=== PATIENT | male | born 1990 | race Hispanic/Latino ===

== ENCOUNTER 2022-07-17 14:06 | Emergency (ER) | payer OTHER ==
--- OUTSIDE RECORDS SUMMARY | 2022-07-17 14:11 | XMS REPORT | Continuity of Care Document ---
:1990 Author Organization [facility] t Address [address] [place] [address] Care Team Providers Name Role Phone Migue Wong Admitting Clinician Unavailable Payers Payer Name Policy Type Policy Number Effective Date Expiration Date S ource Problems This patient has no known problems. Allergies, Adverse Reactions, Alerts Allergy Allergy Status Severity Reaction(s) Onset Inactive Treating Comm ents Source Name Type Date Date Clinician No Known DA Active U 2020-0 [facility] [place] [facility] No Known DA Active U 2020-0 [facility] 418 [place] [facility] No Known DA Active U 2020-0 [facility]- [place] [facility] No Known DA Active U 2020-0 [facility] 6[facility]22 [place] [facility] Medications This patient has no known medications. Procedures This patient has no known procedures. Encounters Start End Encounter Admission Attending Care Care Encounter Source Date/Time Date/Time Type Type Clinicians Facility Department ID 2021-02-20 Inpatient [facility] HC[facility] [id number] [facility] 14:12:19 [facility] [place] [facility] 2020-04-26 Inpatient [facility] ER [id number] [facility] 22:41:00 52 [facility] Results Test Description Test Time Test Comments Results Result Comments Source TROPONIN-I 2021-02-20 16:37:00 Test Item Value Reference Range Interpretation Comme nts TROPONIN-I 14 See_Comment N HIGH SENSITIVI TY TROPONIN (test code pg/ml MEASUREMENT/RANGES As say = TROPI) : Units : Macy l : Risk Stratification : High : : (Detectable : Limit(Suggestive of : AboveTNIH : : Limit) : sequential testing) : 99 : : : : % ile FEMALES: pg/ml : <= 3.0 : 3.1 - 54 : >54 MALES : pg/ml : <= 3. 0 : 3.1 - 78 : >78 [Automated message] The system [employer] generated this result transmitted reference range: <=3.0. The reference range was not used to interpret this result as normal/abnormal. - CT ABD PELVIS [id number] 16:04:00 [facility] 1990 Sex: M Name:KIESHA OSMAN [facility] FS[facility] : 1990 Age/S: 30 / M [address] Unit #: [id number] Loc: [place] [address] Phys: Avtar Hook MD Acct: [id number] Dis Date: Status: REG ER PHONE #: [phone] Exam Date: 02/20/2021 1544 FAX #: [phone] Reason: ABD PAIN EXAMS: CPT CODE: [id number] CT ABD PELVIS W/CONT [id number] EXAM: CT ABDOMEN AND PELVIS WITH CONTRAST. INDICATION: Abdominal pain COMPARISON: None available TECHNIQUE: Axial CT imaging of the abdomen and pelvis was obtained after the administration of intravenous contrast. Coronal and sagittal reformatted images were submitted for review. IV contrast: 90 mL of Isovue-370 DLP: 821.51 mGy-cm FINDINGS: The heart size is normal. The lung bases are clear. No pericardial or pleural effusion is identified. The liver, spleen, gallbladder, pancreas, and adrenal glands is unremarkable. No focal liver lesions are identified. No intrahepatic biliary duct dilatation. The main portal vein is patent and normal in size. The kidneys are normal in size and appearance. No hydronephrosis or nephrolithiasis is identified. The urinary bladder is normal. The stomach, small bowel, large bowel, and appendix are normal in appearance. No bowel obstruction is identified. No lymphadenopathy is identified in the abdomen or pelvis. No free fluid or free air. The IVC is normal. The abdominal aorta is normal in course and caliber. There is grade 1 anterolisthesis of L5 over S1 with bilateral pars defects. IMPRESSION: No acute abnormality in the abdomen or pelvis. Grade 1 anterolisthesis of L5 over S1 with bilateral pars defects. LOCATION: B2 This CTexam was performed according to our departmental dose optimization program, which includes automatedexposure control, adjustment of the mA and or kV according to patient size and/or use of iterative reconstruction technique. PAGE 1 Signed Report (CONTINUED) Name: KIESHA OSMAN [facility] FSED : 1990 Age/S: 30 / M [address] Unit #: [id number] Loc: [place] [address] Phys: Avtar Hook MD Acct: [id number] Dis Date: Status: REG ER PHONE #: [phone] Exam Date: 02/20/2021 1544 FAX #: [phone] Reason: ABD PAIN EXAMS: CPT CODE: [id number] CT ABD PELVIS W/CONT 25801 <Continued> at 1604 Reported and signed by: Harmony Whiteside M.D. CC: Migue Wong MD Technologist:Denzel Peres CT (R) CTDI:14.62 DLP: 821.51 Trnscb Date/Time: 02/20/2021 (1604) [email or web address] Orig Print D/T: S: 02/20/2021 (5385) PAGE 2 Signed ReportDRUGS OF ABUSE [id number] 15:40:00 Test Item Value Reference Range Interpretation Comments UR COCAINE (test code NEGATIVE ng/ml NEGATIVE = COCAU) UR CANNABINOIDS (test NEGATIVE ng/ml NEGATIVE code = CANU) UR AMPHETAMINE (test NEGATIVE ng/dl NEGATIVE code = AMPHU) UR BARBITURATE (test NEGATIVE ng/ml NEGATIVE code = BARBU) UR BENZODIAZEPINE NEGATIVE ng/ml NEGATIVE (test code = BENZU) UR OPIATES QUAL (test POSITIVE ng/ml NEGATIVE A VALU E EXCEEDS code = OPIAQLU) CRITICAL LEV EL. CRITICAL VALUE CALLEDTO AND CRITICAL VALUE READ BACK BY DR Josesito Pierre 1540 02/20/21. Estephania Wall POSITIVE URINE DRUG SCREEN ANDRES T RESULTS ARE UNCONFIRMED.REF ERR ED CONFIRMATORY TESTING AVAILAB LE UPON PHYSICIANREQUES T. UR PHENCYCLIDINE NEGATIVE ng/ml NEGATIVE THE URINE SPECIMEN (PCP) (test code = WAS TESTE D AT THE [facility]) LISTED CUTOFFS DRUG CLASS INIT IAL TEST LEVEL AMPHETAMINES 1 000 NG/MLBARBITURAT ES 200 NG/MLBENZODIAZE PIN ES 200 NG/MLCOCAINE METABOLITE 300 NG/MLMARIJUANA METABOLITE 50 NG/MLOPIATES 30 0 NG/MLPHENCYCLID INE 25 NG/ML UA RFLX MICROSCOPIC [id number] 15:29:00 Test Item Value Reference Range Interpretation Comments UA COLOR (test code = COLU) YELLOW YELLOW UA APPEARANCE (test code = CLEAR CLEAR APPU) UA GLUCOSE DIPSTICK (test code NORMAL mg/dl NORMAL = DGLUU) UA BILIRUBIN DIPSTICK (test NEGATIVE mg/dl NEGATIVE code = BILU) UA KETONE DIPSTICK (test code NEGATIVE mg/dl NEGATIVE = KETU) UA SPECIFIC GRAVITY (test code 1.010 1.001-1.035 N = SGU) UA BLOOD DIPSTICK (test code = NEGATIVE /UL NEGATIVE ANGELITO) UA PH DIPSTICK (test code = 6.5 4.6-8.0 LETICIA) UA PROTEIN DIPSTICK (test code NEGATIVE mg/dl NEGATIVE = PROU) UA UROBILINIOGEN DIPSTICK NORMAL mg/dl NORMAL (test code = URO) UA NITRITE DIPSTICK (test code NEGATIVE NEGATIVE = CL) UA LEUKOCYTE ESTERASE DIPSTICK NEGATIVE /UL NEGATIVE (test code = LEUU) UA COMMENT (test code = COMU) CLN CATCH UA WBC (test code = WBCUR) #/hpf 0-5 Indication for culture: Dysuria/FrequencyURINE SOURCE: CLEAN CATCH URINEUA RFLX MICROSCOPIC [id number] 15:29:00 Test Item Value Reference Range Interpretation Comments UA COLOR (test code = COLU) YELLOW YELLOW UA APPEARANCE (test code = CLEAR CLEAR APPU) UA GLUCOSE DIPSTICK (test code NORMAL mg/dl NORMAL = DGLUU) UA BILIRUBIN DIPSTICK (test NEGATIVE mg/dl NEGATIVE code = BILU) UA KETONE DIPSTICK (test code NEGATIVE mg/dl NEGATIVE = KETU) UA SPECIFIC GRAVITY (test code 1.010 1.001-1.035 N = SGU) UA BLOOD DIPSTICK (test code = NEGATIVE /UL NEGATIVE ANGELITO) UA PH DIPSTICK (test code = 6.5 4.6-8.0 LETIICA) UA PROTEIN DIPSTICK (test code NEGATIVE mg/dl NEGATIVE = PROU) UA UROBILINIOGEN DIPSTICK NORMAL mg/dl NORMAL (test code = URO) UA NITRITE DIPSTICK (test code NEGATIVE NEGATIVE = CL) UA LEUKOCYTE ESTERASE DIPSTICK NEGATIVE /UL NEGATIVE (test code = LEUU) UA COMMENT (test code = COMU) CLN CATCH Indication for culture: Dysuria/FrequencyURINE SOURCE: CLEAN CATCH URINEBASIC METABOLIC [id number] 15:00:00 Test Item Value Reference Range Interpretation Comments SODIUM (test code = 140 mmol/L 136-145 N NA) POTASSIUM (test code 4.2 mmol/L 3.5-5.1 N = K) CHLORIDE (test code = 103 mmol/L 98-107 N CL) CARBON DIOXIDE (test 26 mmol/L 21-32 N code = CO2) GLUCOSE (test code = 95 mg/dL 70-100 N GLU) BLOOD UREA NITROGEN 15 mg/dL 7-18 N (test code = BUN) GLOMERULAR FILTRATION > 60.00 See_Comment Report ing units: RATE (test code = mL/min/1.7 3m\S\2 GFR) (Modified MDRD formula)REFEREN CE RANGE: > or = 6 0 ml/min/1.73M2IF PATIENT IS -MINERVA N, MULTIPLY REPORT ED RESULT BY1.21. [Automated mess age] The system [employer] generated this result transmitted ref erence range: >=60. Th e reference range was not used to int erpret this result as normal/abnormal . CREATININE (test code 0.96 mg/dl 0.70-1.30 N = CREAT) CALCIUM (test code = 8.4 mg/dL 8.5-10.1 L CA) LIVER [id number] 15:00:00 Test Item Value Reference Range Interpretation Comments TOTAL PROTEIN (test code = PROT) 7.5 g/dl 6.4-8.2 N ALBUMIN (test code = ALB) 3.9 g/dl 3.4-5.0 N BILIRUBIN TOTAL (test code = BILT) 0.7 mg/dL 0.2-1.0 N BILIRUBIN DIRECT (test code = 0.16 mg/dl 0.0-0.2 N BILD) SGOT/AST (test code = AST) 29 U/L 15-37 N SGPT/ALT (test code = ALT) 42 U/L 12-78 N ALKALINE PHOSPHATASE TOTAL (test 55 U/L 50-136 N code = ALKP) [id number] 15:00:00 Test Item Value Reference Range Interpretation Comments LIPASE (test code = LIP) 162 U/L 73-393 N [id number] 15:00:00 Test Item Value Reference Range Interpretation Comments TROPONIN-I (test 15 pg/ml See_Comment N HIGH SENSI TIVITY TROPONIN code = TROPI) MEASUREMENT/RA NGES--------- ---------Ass ay : Units : No rmal : Risk Stratification : High : : (Detectable : Limit(Suggestiv e of : AboveTNIH : : Limit) : sequential test ing) : 99th : : : : % ile --------FEMALES : pg/ml : <= 3.0 : 3.1 - 54 : >54 --------MALES : pg/ml : <= 3.0 : 3.1 - 78 : >78 --------- [Auto mated message] The sy stem which generated this result transmitted ref erence range: <=3.0. T he reference range was not u sed to interpret this result as normal/abnormal . BASIC METABOLIC [id number] 14:41:00 Test Item Value Reference Range Interpretation Comments SODIUM (test code = 140 mmol/L 136-145 N NA) POTASSIUM (test code 4.2 mmol/L 3.5-5.1 N = K) CHLORIDE (test code = 103 mmol/L 98-107 N CL) CARBON DIOXIDE (test 26 mmol/L 21-32 N code = CO2) GLUCOSE (test code = 95 mg/dL 70-100 N GLU) BLOOD UREA NITROGEN 15 mg/dL 7-18 N (test code = BUN) GLOMERULAR FILTRATION > 60.00 See_Comment Report ing units: RATE (test code = mL/min/1.7 3m\S\2 GFR) (Modified MDRD formula)REFEREN CE RANGE: > or = 6 0 ml/min/1.73M2IF PATIENT IS -MINERVA N, MULTIPLY REPORT ED RESULT BY.. [Automated mess age] The system [employer] generated this result transmitted ref erence range: >=60. Th e reference range was not used to int erpret this result as normal/abnormal . CREATININE (test code 0.96 mg/dl 0.70-1.30 N = CREAT) CALCIUM (test code = 8.4 mg/dL 8.5-10.1 L CA) LIVER [id number] 14:41:00 Test Item Value Reference Range Interpretation Comments TOTAL PROTEIN (test code = PROT) 7.5 g/dl 6.4-8.2 N ALBUMIN (test code = ALB) 3.9 g/dl 3.4-5.0 N BILIRUBIN TOTAL (test code = BILT) 0.7 mg/dL 0.2-1.0 N BILIRUBIN DIRECT (test code = BILD) mg/dl 0.0-0.2 SGOT/AST (test code = AST) 29 U/L 15-37 N SGPT/ALT (test code = ALT) 42 U/L 12-78 N ALKALINE PHOSPHATASE TOTAL (test 55 U/L 50-136 N code = ALKP) [id number] 14:41:00 Test Item Value Reference Range Interpretation Comments LIPASE (test code = LIP) 162 U/L 73-393 N [id number] 14:41:00 Test Item Value Reference Range Interpretation Comments TROPONIN-I (test pg/ml See_Comment [Automated message] The code = TROPI) system which g enerated this result transmit dipti reference range : <=3.0. The reference range was not used to interpr et this result as macy l/abnormal. LACTIC [id number] 14:41:00 Test Item Value Reference Range Interpretation Comments LACTIC ACID (test code = LACT) 1.4 mmol/l 0.4-2.0 N CBC W/AUTO [id number] 14:40:00 Test Item Value Reference Range Interpretation Comments WHITE BLOOD CELL (test code = 4.8 X10(3) 4.5-11.0 N WBC) RED BLOOD CELL (test code = 5.98 X10(6) 4.3-5.9 H RBC) HEMOGLOBIN (test code = HGB) 17.7 g/dL 13.5-18.0 N HEMATOCRIT (test code = HCT) 53.1 % 42.0-52.0 H MEAN CELL VOLUME (test code = 88.8 fL 78-100 N MCV) MEAN CELL HGB (test code = MCH) 29.6 pg 26.0-34.0 N MEAN CELL HGB CONCETRATION 33.3 g/dl 30.0-37.0 N (test code = MCHC) RED CELL DISTRIBUTION WIDTH 12.4 % 11.5-14.5 N (test code = RDW) PLATELET COUNT (test code = 232 X10(3) 150-350 N PLT) MEAN PLATELET VOLUME (test code 9.4 fl 8.7-11.4 N = MPV) NEUTROPHIL % (test code = NT%) 49.1 % 36.0-66.0 N IMMATURE GRANULOCYTE % (test 0.2 % 0.0-2.0 N code = IG%) LYMPHOCYTE % (test code = LY%) 40.4 % 16-50 N MONOCYTE % (test code = MO%) 6.3 % 0.0-13.0 N EOSINOPHIL % (test code = EO%) 3.4 % 0.0-4.5 N BASOPHIL % (test code = BA%) 0.6 % 0.0-1.5 N NEUTROPHIL # (test code = NT#) 2.3 X10(3) 1.7-7.7 N IMMATURE GRANULOCYTE # (test 0.01 X10(3)uL 0.00-0.03 N code = IG#) LYMPHOCYTE # (test code = LY#) 1.9 X10(3) 1.0-4.8 N MONOCYTE # (test code = MO#) 0.3 X10(3) 0.0-0.89 N EOSINOPHIL # (test code = EO#) 0.2 X10(3) 0.0-0.6 N BASOPHIL # (test code = BA#) 0.0 X10(3) 0.0-0.2 N - CT ABD PELVIS [id number] 23:43:00 Name: KIESHA HUBBARD [facility] FSED : 1990 Age/S: 29 / M [address] Unit #: [id number] Loc: [place] [address] Phys: Laury Rojas Acct: [id number] Dis Date: Status: REG ER PHONE #: [phone] Exam Date: 04/26/20202331 FAX #: [phone] Reason: RLQ TENDERNESS EXAMS: CPT CODE: [id number] CT ABD PELVIS W/CONT 82541 EXAM: CT ABDOMEN AND PELVIS WITH IV CONTRAST DICTATION LOCATION: 8 HISTORY: Male, 29 years of age with RLQ TENDERNESS TECHNIQUE: Contrast: Nonionic IV contrast was given. No GI contrast was given. Portal venous phase: Abdomen and pelvis Delayed phase: None Reconstructions: Coronal and sagittal One or more of the following dose reduction techniques were used: Automated exposure control; adjustment of the mA and/or kV according to the patient size; and/or use of iterative reconstruction technique. COMPARISON: None FINDINGS: Statements: Exam quality is acceptable. Lower thorax: Unremarkable. Hepatobiliary: The liver is normal without focal lesion. The gallbladder is normal. No biliary dilation. Pancreas: Normal. Spleen: Normal. Adrenals: Normal. Genitourinary: No solid renal mass, significant cortical thinning, obvious renal stone or hydronephrosis. Ureters are unremarkable. Urinary bladder is unremarkable. The visualized reproductive organs are unremarkable. Gastrointestinal: No bowel wall thickening, bowel obstruction or perienteric inflammation. The appendix is normal. Vascular: No aortic aneurysm or dissection. IVC is unremarkable. Portal vein is patent. Lymphatics: No enlarged lymph nodes by CT size criteria. PAGE 1 Signed Report (CONTINUED) Name: KIESHA HUBBARD [facility] FS[facility] : 1990 Age/S: 29 / M [address] [facility] Unit #: [id number] Loc: [place] [address] Phys: Laury Rojas Jorge Acct: [id number] Dis Date: Status: REG ER PHONE #: [phone] Exam Date: 04/26/20202331 FAX #: [phone] Reason: RLQ TENDERNESS EXAMS: CPT CODE: [id number] CT ABD PELVIS W/CONT 44812 (Continued) Bones/Soft Tissues: No acute osseous findings. Chronic spondylolysis and grade 1 spondylolisthesis at L5. Severe disc space narrowing seen at L5-S1. No ventral hernias. Peritoneum/Other: No free intraperitoneal air. No free intraperitoneal fluid. IMPRESSION: No acute findings in abdomen or pelvis. No evidence for appendicitis. at 2343 Reported and signed by: ROMAN Wilkerson CC: Laury Quintana Technologist:Bev Osman RT (R) CT CTDI: 14.62 DLP:858.07 Trnscb Date/Time: 04/26/2020 (2343) t.CLW Orig Print D/T: S: 04/26/2020 (4082) PAGE 2 Signed ReportDRUGS OF ABUSE SCREEN 2020-04-26 23:33:00 Test Item Value Reference Range Interpretation Comments UR COCAINE (test code NEGATIVE ng/ml NEGATIVE = COCAU) UR CANNABINOIDS (test NEGATIVE ng/ml NEGATIVE code = CANU) UR AMPHETAMINE (test NEGATIVE ng/dl NEGATIVE THE U RINE SPECIMEN code = AMPHU) WAS TESTED AT THE LISTED CUTOFFS DRUG CLASS INIT IAL TEST LEVEL AMPHETAMINES 10 00 NG/MLBARBITURAT ES 200 NG/MLBENZODIAZE PIN ES 200 NG/MLCOCAINE METABOLITE 300 NG/MLMARIJUANA METABOLITE 50 NG/MLOPIATES 20 00 NG/MLPHENCYCLID INE 25 NG/ML UR BARBITURATE (test NEGATIVE ng/ml NEGATIVE code = BARBU) UR BENZODIAZEPINE NEGATIVE ng/ml NEGATIVE (test code = BENZU) UR OPIATES QUAL (test NEGATIVE ng/ml NEGATIVE code = OPIAQLU) UR PHENCYCLIDINE NEGATIVE ng/ml NEGATIVE SPECIMEN ANALYSIS (PCP) (test code = WAS PERFO RMED PHENCU) WITHOUT CHAIN O F CUSTODYHANDLING . THESE RESULTS SHOULD BE USED FOR MEDICAL PURPOSESONLY AN D NOT FOR ANY LEG AL OR EMPLOYMENT [facility]AL[facility]ATIONPL[facility] . URINALYSIS W REFLEX [id number] 23:25:00 Test Item Value Reference Range Interpretation Comments UA COLOR (test code = COLU) YELLOW YELLOW UA APPEARANCE (test code = CLEAR CLEAR APPU) UA GLUCOSE DIPSTICK (test code NORMAL mg/dl NORMAL = DGLUU) UA BILIRUBIN DIPSTICK (test NEGATIVE mg/dl NEGATIVE code = BILU) UA KETONE DIPSTICK (test code NEGATIVE mg/dl NEGATIVE = KETU) UA SPECIFIC GRAVITY (test code 1.015 1.001-1.035 N = SGU) UA BLOOD DIPSTICK (test code = NEGATIVE /UL NEGATIVE ANGELITO) UA PH DIPSTICK (test code = 6.5 4.6-8.0 LETICIA) UA PROTEIN DIPSTICK (test code NEGATIVE mg/dl NEGATIVE = PROU) UA UROBILINIOGEN DIPSTICK NORMAL mg/dl NORMAL (test code = URO) UA NITRITE DIPSTICK (test code NEGATIVE NEGATIVE = CL) UA LEUKOCYTE ESTERASE DIPSTICK 25 /UL NEGATIVE A (test code = LEUU) UA COMMENT (test code = COMU) CLN CATCH UA MICROSCOPIC NEEDED? (test Y= DO UA MICRO code = UAMICRO) URINALYSIS W REFLEX [id number] 23:25:00 Test Item Value Reference Range Interpretation Comments UA COLOR (test code = COLU) YELLOW YELLOW UA APPEARANCE (test code = CLEAR CLEAR APPU) UA GLUCOSE DIPSTICK (test code NORMAL mg/dl NORMAL = DGLUU) UA BILIRUBIN DIPSTICK (test NEGATIVE mg/dl NEGATIVE code = BILU) UA KETONE DIPSTICK (test code NEGATIVE mg/dl NEGATIVE = KETU) UA SPECIFIC GRAVITY (test code 1.015 1.001-1.035 N = SGU) UA BLOOD DIPSTICK (test code = NEGATIVE /UL NEGATIVE ANGELITO) UA PH DIPSTICK (test code = 6.5 4.6-8.0 LETICIA) UA PROTEIN DIPSTICK (test code NEGATIVE mg/dl NEGATIVE = PROU) UA UROBILINIOGEN DIPSTICK NORMAL mg/dl NORMAL (test code = URO) UA NITRITE DIPSTICK (test code NEGATIVE NEGATIVE = CL) UA LEUKOCYTE ESTERASE DIPSTICK 25 /UL NEGATIVE A (test code = LEUU) UA COMMENT (test code = COMU) CLN CATCH UA MICROSCOPIC NEEDED? (test Y= DO UA MICRO code = UAMICRO) UA [id number] 23:25:00 Test Item Value Reference Range Interpretation Comments UA WBC (test code = WBCU) 0-2 #/hpf 0-5 UA RBC (test code = RBCU) 0-2 #/hpf 0-5 UA EPITHELIAL CELLS (test code = FEW /hpf NEG,FEW EPIU) UA BACTERIA (test code = BACU) FEW /hpf NEGATIVE A URINALYSIS W REFLEX [id number] 23:25:00 Test Item Value Reference Range Interpretation Comments UA COLOR (test code = COLU) YELLOW YELLOW UA APPEARANCE (test code = CLEAR CLEAR APPU) UA GLUCOSE DIPSTICK (test code NORMAL mg/dl NORMAL = DGLUU) UA BILIRUBIN DIPSTICK (test NEGATIVE mg/dl NEGATIVE code = BILU) UA KETONE DIPSTICK (test code NEGATIVE mg/dl NEGATIVE = KETU) UA SPECIFIC GRAVITY (test code 1.015 1.001-1.035 N = SGU) UA BLOOD DIPSTICK (test code = NEGATIVE /UL NEGATIVE ANGELITO) UA PH DIPSTICK (test code = 6.5 4.6-8.0 LETICIA) UA PROTEIN DIPSTICK (test code NEGATIVE mg/dl NEGATIVE = PROU) UA UROBILINIOGEN DIPSTICK NORMAL mg/dl NORMAL (test code = URO) UA NITRITE DIPSTICK (test code NEGATIVE NEGATIVE = CL) UA LEUKOCYTE ESTERASE DIPSTICK 25 /UL NEGATIVE A (test code = LEUU) UA COMMENT (test code = COMU) CLN CATCH UA MICROSCOPIC NEEDED? (test Y= DO UA MICRO code = UAMICRO) COMPREHENSIVE METABOLIC [id number] 23:06:00 Test Item Value Reference Range Interpretation Comments SODIUM (test code = NA) 137 mmol/L 136-145 N POTASSIUM (test code = 3.7 mmol/L 3.5-5.1 N K) CHLORIDE (test code = 101 mmol/L 98-107 N CL) CARBON DIOXIDE (test 27 mmol/L 21-32 N code = CO2) GLUCOSE (test code = 125 mg/dL 70-100 H GLU) BLOOD UREA NITROGEN 14 mg/dL 7-18 N (test code = BUN) GLOMERULAR FILTRATION > 60.00 >=60 Report ing units: RATE (test code = GFR) mL/mi n/1.73m\S\2 (Modified MDRD formula)REFEREN CE RANGE: > or = 6 0 ml/min/1.73M2IF PATIENT IS -MINERVA N, MULTIPLY REPORT ED RESULT BY1.21. CREATININE (test code = 1.06 mg/dl 0.70-1.30 N CREAT) TOTAL PROTEIN (test 7.6 g/dl 6.4-8.2 N code = PROT) ALBUMIN (test code = 4.0 g/dl 3.4-5.0 N ALB) CALCIUM (test code = 8.5 mg/dL 8.5-10.1 N CA) BILIRUBIN TOTAL (test 0.5 mg/dL 0.2-1.0 N code = BILT) SGOT/AST (test code = 24 U/L 15-37 N AST) SGPT/ALT (test code = 34 U/L 12-78 N ALT) ALKALINE PHOSPHATASE 63 U/L 50-136 N TOTAL (test code = ALKP) [id number] 23:06:00 Test Item Value Reference Range Interpretation Comments LIPASE (test code = LIP) 129 U/L 73-393 N CBC W/AUTO [id number] 22:53:00 Test Item Value Reference Range Interpretation Comments WHITE BLOOD CELL (test code = 7.0 X10(3) 4.5-11.0 N WBC) RED BLOOD CELL (test code = RBC) 5.20 X10(6) 4.3-5.9 N HEMOGLOBIN (test code = HGB) 15.4 g/dL 13.5-18.0 N HEMATOCRIT (test code = HCT) 44.1 % 42.0-52.0 N MEAN CELL VOLUME (test code = 84.8 fL 78-100 N MCV) MEAN CELL HGB (test code = MCH) 29.6 pg 26.0-34.0 N MEAN CELL HGB CONCETRATION (test 34.9 g/dl 30.0-37.0 N code = MCHC) RED CELL DISTRIBUTION WIDTH (test 15.3 % 11.5-14.5 H code = RDW) PLATELET COUNT (test code = PLT) 230 X10(3) 150-350 N MEAN PLATELET VOLUME (test code = 10.0 fl 8.7-11.4 N MPV) NEUTROPHIL % (test code = NT%) 54.6 % 36.0-66.0 N LYMPHOCYTE % (test code = LY%) 36.8 % 16-50 N MONOCYTE % (test code = MO%) 4.9 % 0.0-13.0 N EOSINOPHIL % (test code = EO%) 3.4 % 0.0-4.5 N BASOPHIL % (test code = BA%) 0.3 % 0.0-1.5 N NEUTROPHIL # (test code = NT#) 3.8 X10(3) 1.7-7.7 N LYMPHOCYTE # (test code = LY#) 2.6 X10(3) 1.0-4.8 N MONOCYTE # (test code = MO#) 0.3 X10(3) 0.0-0.89 N EOSINOPHIL # (test code = EO#) 0.2 X10(3) 0.0-0.6 N BASOPHIL # (test code = BA#) 0.0 X10(3) 0.0-0.2 N RBC MORPHOLOGY REQUIRED (test NO NORMAL code = RBCM)
--- NOTE | 2022-07-17 16:21 | RAD REPORT ---
EXAM DESCRIPTION: RAD - Elbow Right 3 View - 07/17/2022 3:49 pm CLINICAL HISTORY: Elbow pain FINDINGS: No fracture or dislocation seen No bone or joint abnormality displayed
[2022-07-17] MEDS ORDERED: KETOROLAC 30 MG/ML INJ ONE (16:55)
--- NOTE | 2022-07-17 17:13 | EDPHYS ---
Physician Documentation [facility] Name: Jadiel Zamorano Age: 32 yrs Sex: Male : 1990 Arrival Date: 07/17/2022 Time: 14:14 Bed 10 Private MD: ED Physician Marquise Pardo HPI: 07/17 14:57 This 32 yrs old Male presents to ER via Ambulatory with complaints of Elbow jmm Injury. 14:57 The patient or guardian complains of injury, pain. Onset: The symptoms/episode jmm began/occurred acutely, 1 day(s) ago. This is a 32 year old male with no chronic medical conditions that presents to the ED with complaints of right elbow pain after he performed strenous activity at work yesterday. Patient has taken anti inflammatories without relief. . Historical: - Allergies: 14:56 No Known Allergies; aa5 - PMHx: 14:56 None; aa5 - PSHx: 14:56 None; aa5 - Immunization history:: Adult Immunizations unknown. - Social history:: Smoking status: Patient reports the use of cigarette tobacco products, denies chronic smoking, but will smoke occasionally. ROS: 14:57 Constitutional: Negative for fever, chills, and weight loss, Cardiovascular: Negative jmm for chest pain, palpitations, and edema, Respiratory: Negative for shortness of breath, cough, wheezing, and pleuritic chest pain. 14:57 MS/extremity: Positive for pain, swelling. 14:57 All other systems are negative. Exam: 14:57 Constitutional: This is a well developed, well nourished patient who is awake, alert, jmm and in no acute distress. Head/Face: atraumatic. Eyes: EOMI, no conjunctival erythema appreciated ENT: Moist Mucus Membranes Neck: Trachea midline, Supple Chest/axilla: Normal chest wall appearance and motion. Cardiovascular: Regular rate and rhythm. No edema appreciated Respiratory: Normal respirations, no respiratory distress appreciated Abdomen/GI: Non distended Back: Normal ROM Skin: General appearance color normal 14:57 Musculoskeletal/extremity: pain elicited on palpation of the right lateral epicondyle. FROM appreciated, compartments are soft. Full radial pulse, NVI. 14:57 Skin: Appearance: Color: normal in color. 14:57 Neuro: Orientation: is normal, Mentation: is normal, Memory: is normal. 14:57 Psych: Behavior/mood is pleasant, cooperative. Vital Signs: 14:56 BP 144 / 80; Pulse 84; Resp 16 S; Temp 98.2(TE); Pulse Ox 98% on R/A; Weight 113.4 kg aa5 (R); Height 6 ft. 0 in. (182.88 cm) (R); 17:38 BP 131 / 70; Pulse 91; Resp 18; Pulse Ox 96% on R/A; em6 14:56 Body Mass Index 33.91 (113.40 kg, 182.88 cm) aa5 MDM: 14:57 Patient medically screened. [facility] 17:11 Data reviewed: vital signs, nurses notes. Counseling: I had a detailed discussion with [facility] the patient and/or guardian regarding: the historical points, exam findings, and any diagnostic results supporting the discharge/admit diagnosis, radiology results, the need for outpatient follow up, to return to the emergency department if symptoms worsen or persist or if there are any questions or concerns that arise at home. 07/17 14:57 Order name: Elbow Right 3 View XRAY; Complete Time: 16:25 [facility] Administered Medications: 17:00 Drug: Ketorolac 30 mg Route: IM; Site: left deltoid; em6 17:28 Follow up: Response: No adverse reaction em6 Disposition Summary: 07/17/22 17:13 Discharge Ordered Location: Home [facility] Condition: Stable [facility] Diagnosis - Lateral epicondylitis, right elbow [facility] Followup: [facility] - With: Calos Morrissey MD - When: 2 - 3 days - Reason: Recheck today's complaints, Continuance of care, Re-evaluation by your physician Discharge Instructions: - Discharge Summary Sheet [facility] - [facility] Elbow [facility] Forms: - Medication Reconciliation Form [facility] - Thank You Letter [facility] - Antibiotic Education [facility] - Prescription Opioid Use [facility] - Work release form em6 Prescriptions: - Medrol (Amado) 4 mg Oral Tablets, Dose Pack - take 1 tablet by ORAL route as directed - follow package instructions; 1 [facility] packet; Refills: 0, Product Selection Permitted - orphenadrine citrate 100 mg Oral Tablet Sustained Release - take 1 tablet by ORAL route 2 times per day As needed; 20 tablet; Refills: 0, [facility] Product Selection Permitted Signatures: Dispatcher [employer] Jose Whitley PA PA jmm Calderon, Audri, RN RN aa5 Francia Zamorano, RN RN em6
--- NOTE | 2022-07-17 17:13 | ER ---
Nurse's Notes [facility] Name: Jadiel Zamorano Age: 32 yrs Sex: Male : 1990 Arrival Date: 07/17/2022 Time: 14:14 Bed 10 Private MD: Diagnosis: Lateral epicondylitis, right elbow Presentation: 07/17 14:55 Chief complaint: Patient states: right elbow pain that began on Sunday at work, pt aa5 reports he did some heavy lifting at work that day. Coronavirus screen: At this time, the client does not indicate any symptoms associated with coronavirus-19. Ebola Screen: Patient denies travel to an Ebola-affected area in the 21 days before illness onset. Initial Sepsis Screen: Does the patient meet any 2 criteria? No. Patient's initial sepsis screen is negative. Does the patient have a suspected source of infection? No. Patient's initial sepsis screen is negative. Risk Assessment: Do you want to hurt yourself or someone else? Patient reports no desire to harm self or others. Onset of symptoms was July 2022. 14:55 Acuity: ALVARADO 4 aa5 14:55 Method Of Arrival: Ambulatory aa5 Triage Assessment: 17:00 General: Appears in no apparent distress. Behavior is calm, cooperative. Injury em6 Description: pain in the elbow. no injury noted. Historical: - Allergies: 14:56 No Known Allergies; aa5 - PMHx: 14:56 None; aa5 - PSHx: 14:56 None; aa5 - Immunization history:: Adult Immunizations unknown. - Social history:: Smoking status: Patient reports the use of cigarette tobacco products, denies chronic smoking, but will smoke occasionally. Screenin:28 Abuse screen: Denies threats or abuse. Nutritional screening: No deficits noted. em6 Tuberculosis screening: No symptoms or risk factors identified. Fall Risk Total Leon Fall Scale indicates No Risk (0-24 pts). Assessment: 16:55 General: Appears in no apparent distress. comfortable, Behavior is calm, cooperative, em6 appropriate for age. Pain: Complains of pain in right elbow Pain does not radiate. Pain currently is 6 out of 10 on a pain scale. Quality of pain is described as throbbing, pulsating, Pain began 1 day ago. Neuro: Marti Agitation-Sedation Scale (RASS): 0 - Alert and Calm Level of Consciousness is awake, alert, obeys commands, Oriented to person, place, time, situation. Cardiovascular: Heart tones present Patient's skin is warm and dry. Respiratory: Airway is patent Respiratory effort is even, unlabored, Respiratory pattern is regular, symmetrical. GI: No signs and/or symptoms were reported involving the gastrointestinal system. : No signs and/or symptoms were reported regarding the genitourinary system. EENT: No signs and/or symptoms were reported regarding the EENT system. Derm: No signs and/or symptoms reported regarding the dermatologic system. Musculoskeletal: Range of motion: limited in right elbow. Vital Signs: 14:56 BP 144 / 80; Pulse 84; Resp 16 S; Temp 98.2(TE); Pulse Ox 98% on R/A; Weight 113.4 kg aa5 (R); Height 6 ft. 0 in. (182.88 cm) (R); 17:38 BP 131 / 70; Pulse 91; Resp 18; Pulse Ox 96% on R/A; em6 14:56 Body Mass Index 33.91 (113.40 kg, 182.88 cm) aa5 ED Course: 14:14 Patient arrived in ED. rg4 14:18 Jose Ayers PA is PHCP. [facility] 14:18 Marquise Pardo MD is Attending Physician. jmm 14:54 Arm band placed on. aa5 14:56 Triage completed. aa5 15:51 Elbow Right 3 View XRAY In Process Unspecified. EDMS 17:12 Calos Morrissey MD is Referral Physician. jmm 17:29 Bed in low position. Call light in reach. em6 17:29 No provider procedures requiring assistance completed. Patient did not have IV access em6 during this emergency room visit. Administered Medications: 17:00 Drug: Ketorolac 30 mg Route: IM; Site: left deltoid; em6 17:28 Follow up: Response: No adverse reaction em6 Medication: 17:29 VIS not applicable for this client. em6 Outcome: 17:13 Discharge ordered by . jmm 17:39 Discharged to home ambulatory. em6 17:39 Condition: stable 17:39 Discharge instructions given to patient, Instructed on discharge instructions, follow up and referral plans. medication usage, Demonstrated understanding of instructions, follow-up care, medications, Prescriptions given X 2. 17:40 Patient left the ED. em6 Signatures: Dispatcher [employer] EDMS Jose Ayers PA PA jmm Calderon, Audri, RN RN aa5 Cris Mckee4 Francia Zamorano RN RN em6 Corrections: (The following items were deleted from the chart) 14:57 14:56 BP 144 / 80; Pulse 84bpm; Resp 16bpm; Spontaneous; Pulse Ox 98% RA; Temp 98.2F aa5 Temporal; aa5
[2022-07-17 19:30] VITALS: TEMP 98.2
[2022-07-17 19:33] VITALS: BP 131/70; O2SAT 96
== END 2022-07-17 17:40 | disposition home or self-care (01) ==
LOC: ER 14:06
DX: M77.11 Lateral epicondylitis, right elbow (principal); F17.210 Nicotine dependence, cigarettes, uncomplicated
CPT/HCPCS: 96372; 99283